=== PATIENT | female | born 1980 | race Hispanic/Latino ===

== ENCOUNTER → 2016-05-03 | Outpatient (REF) | payer OTHER | LOC: M SFHCLERA 15:39 | PROVIDERS: ATTEND Nurse Practitioner Family | DX: M54.5 Low back pain (principal); M54.2 Cervicalgia; R11.0 Nausea ==

== ENCOUNTER 2019-01-31 01:58 | Emergency (ER) | payer OTHER ==
[~2019-01-31] VITALS: Ht 157.5 cm; Wt 120.9 kg
[2019-01-31] MEDS ORDERED: ONDANSETRON 4MG/2ML VIAL (J2405) IV ONE (02:45)
[2019-01-31] MEDS ORDERED: NS 1,000 ML IV ONE (02:45)
[2019-01-31 03:22] VITALS: BP 173/89
== END 2019-01-31 03:57 | disposition home or self-care (01) ==
LOC: M ED 01:58
DX: F41.1 Generalized anxiety disorder (principal); R20.2 Paresthesia of skin; K21.9 Gastro-esophageal reflux disease without esophagitis

== ENCOUNTER → 2019-06-09 | Outpatient (REF) | payer OTHER | LOC: M LAB REF 09:30 | PROVIDERS: ATTEND Physician Assistant | DX: N39.0 Urinary tract infection, site not specified (principal) ==